=== PATIENT | male | born 2000 | race Two or more races ===

== ENCOUNTER 2022-07-08 22:24 | Inpatient (IN) | payer OTHER ==
[~2022-07-08] VITALS: Ht 175.3 cm; Wt 82.0 kg
[2022-07-08] MEDS ORDERED: SODIUM CHLORIDE 0.9% 1,000 ML IV ONE (23:15)
[2022-07-08] MEDS ORDERED: LORazepam 2MG/ML-1ML VIAL IV ONE (23:15)
[2022-07-08] MEDS ORDERED: levETIRAcetam 500 MG/5ML INJ IV ONE (23:34)
[2022-07-09 00:11] LABS: Alanine Aminotransferase 54 U/L (16-61); Albumin 3.5 g/dL (3.4-5.0); Anion Gap 6 (5-15); Aspartate Aminotransferase 36 U/L (15-37); BUN/Creatinine Ratio 7.9; Blood Alcohol < 3.0 mg/dL (0-5); Blood Urea Nitrogen 8 mg/dL (7-18); Carbon Dioxide 26 mmol/L (21-32); Chloride 114 mmol/L (98-107); GFR African American 121 mL/min; GFR Non-African American 100 mL/min; Glucose 95 mg/dL (74-106); Potassium 3.3 mmol/L (3.5-5.1); Sodium 146 mmol/L (136-145)
[2022-07-09 00:14] LABS: Alkaline Phosphatase 79 U/L (45-117); Bilirubin, Total 0.4 mg/dL (0.2-1.0); Total Protein 6.4 g/dL (6.4-8.2)
[2022-07-09 00:28] LABS: Basophils # (auto) 0 10 ^3/uL (0-0.2); Red Blood Cells 5.01 10^6/uL (4.5-5.90)
[2022-07-09 00:30] LABS: Basophils % (auto) 0.4 % (0.0-2.0); Eosinophils # (auto) 0.3 10 ^3/uL (0-0.8); Eosinophils % (auto) 2.7 % (0.0-7.0); Hematocrit 40.2 % (41.0-53.0); Lymphocytes # (auto) 2.5 10 ^3/uL (0.4-5.4); Mean Corpuscular Hgb Conc. 32.4 g/dL (32.0-36.0); Mean Corpuscular Volume 80.3 fL (80.0-100.0); Monocytes # (auto) 0.9 10 ^3/uL (0-1.3); Monocytes % (auto) 9.1 % (0.0-12.0); Neutrophils # (auto) 5.9 10 ^3/uL (1.6-8.6); Neutrophils % (auto) 61.8 % (37.0-80.0); Red Cell Distribution Width 13.4 % (11.8-14.3); White Blood Cell 9.6 10^3/uL (4.4-10.8)
[2022-07-09] MEDS ORDERED: PIPERACILLIN-TAZOB 3.375GM 100 ML IV ONE (02:30)
[2022-07-09] MEDS ORDERED: methylPREDNISolone SOD SUCC 125 MG/2 ML VL IV ONE (02:30)
[2022-07-09] MEDS ORDERED: ONDANSETRON HCL 4 MG/2 ML VIAL IV PRN ×2 (03:00→12:45)
[2022-07-09] MEDS ORDERED: PHENYTOIN IV DILANTIN 1,000 MG in SODIUM CHL 0.9% 250 ML IV ONE (03:30)
[2022-07-09] MEDS ORDERED: D5W/SOD CHL 0.45% 1,000 ML IV ONE (04:00)
[2022-07-09] MEDS ORDERED: PHENYTOIN SODIUM 50 MG/ML 5ML INJ VIAL IV ONE (04:27)
[2022-07-09] MEDS ORDERED: PHENYTOIN SODIUM 50 MG/ML 2ML VIAL IV ONE (04:28)
[2022-07-09 04:39] LABS: Basophils # (auto) 0 10 ^3/uL (0-0.2); Basophils % (auto) 0.2 % (0.0-2.0); Eosinophils # (auto) 0.2 10 ^3/uL (0-0.8); Hemoglobin 11.9 g/dL (13.5-17.5); Lymphocytes # (auto) 1.6 10 ^3/uL (0.4-5.4); Mean Corpuscular Hemoglobin 26.2 pg (28.0-32.0); Monocytes # (auto) 0.4 10 ^3/uL (0-1.3); Nucleated Red Blood Cells % 0.1 %
[2022-07-09 04:40] LABS: Eosinophils % (auto) 2.9 % (0.0-7.0); Hematocrit 36.4 % (41.0-53.0); Lymphocytes % (auto) 25.2 % (10.0-50.0); Mean Corpuscular Hgb Conc. 32.7 g/dL (32.0-36.0); Mean Corpuscular Volume 80.3 fL (80.0-100.0); Monocytes % (auto) 6.8 % (0.0-12.0); Neutrophils % (auto) 64.9 % (37.0-80.0); Red Blood Cells 4.53 10^6/uL (4.5-5.90); Red Cell Distribution Width 13.4 % (11.8-14.3); White Blood Cell 6.2 10^3/uL (4.4-10.8)
[2022-07-09 04:56] LABS: Albumin 2.6 g/dL (3.4-5.0); Calcium 6.8 mg/dL (8.5-10.1); Potassium 3.2 mmol/L (3.5-5.1)
[2022-07-09 05:00] LABS: BUN/Creatinine Ratio 8.6; Bilirubin, Total 0.8 mg/dL (0.2-1.0); Total Protein 4.8 g/dL (6.4-8.2)
[2022-07-09] MEDS ORDERED: LORazepam 2MG/ML-1ML VIAL ONE ×2 (09:02→12:02)
[2022-07-09] MEDS ORDERED: ENOXAPARIN SOD 100 MG/1 ML SYRINGE SC SCH (10:00)
[2022-07-09] MEDS ORDERED: PANTOPRAZOLE 40 MG/10 ML VIAL INJ IV SCH (10:00)
[2022-07-09] MEDS: ENOXAPARIN SOD 40 MG/0.4 ML SYRINGE SC SCH (10:14)
[2022-07-09] MEDS ORDERED: LORazepam 2MG/ML-1ML VIAL IM ONE (11:30)
[2022-07-09] MEDS ORDERED: LORazepam 2MG/ML-1ML VIAL IV ONE (12:15)
[2022-07-09] MEDS ORDERED: POTASSIUM CHL 20 Meq TABLET PO ONE (12:15)
[2022-07-09] MEDS ORDERED: LORazepam 2MG/ML-1ML VIAL IV PRN (12:15)
[2022-07-09] MEDS: levETIRAcetam 500 MG TAB PO SCH ×2 (14:07→23:56)
[2022-07-09 22:18] VITALS: BP 128/78
[2022-07-10 00:14] VITALS: BP 113/72
[2022-07-10 04:33] VITALS: BP 117/65
[2022-07-10] MEDS: levETIRAcetam 500 MG TAB PO SCH ×3 (05:41→22:00)
[2022-07-10 05:52] LABS: Albumin 3.2 g/dL (3.4-5.0); Calcium 8.8 mg/dL (8.5-10.1)
[2022-07-10 05:56] LABS: BUN/Creatinine Ratio 9.7; Bilirubin, Total 0.5 mg/dL (0.2-1.0); Total Protein 6.3 g/dL (6.4-8.2)
[2022-07-10] MEDS: LORazepam 2MG/ML-1ML VIAL IV PRN ×3 (08:05→23:13)
[2022-07-10 09:00] VITALS: BP 105/59
[2022-07-10] MEDS: ENOXAPARIN SOD 40 MG/0.4 ML SYRINGE SC SCH (09:42)
[2022-07-10] MEDS: PANTOPRAZOLE 40 MG TAB PO SCH (09:42)
[2022-07-10] MEDS: PHENYTOIN IV DILANTIN 300 MG in SODIUM CHL 0.9% 50 ML IV SCH (09:42)
[2022-07-10 10:35] LABS: Urine Bacteria NONE SEEN /hpf (None Seen); Urine Blood Negative /uL (Negative); Urine Specific Gravity 1.018 (1.001-1.035); Urine WBC 1 /hpf (0 - 3)
[2022-07-10 11:01] LABS: Barbiturate Scree,Urine NEGATIVE (NEGATIVE)
[2022-07-10 11:14] LABS: Amphetamine Screen, Urine NEGATIVE (NEGATIVE); Benzodiazephine Screen, Urine NEGATIVE (NEGATIVE); Cannabinoid Screen, Urine NEGATIVE (NEGATIVE); Cocaine Screen, Urine NEGATIVE (NEGATIVE); Opiate Scree,Urine NEGATIVE (NEGATIVE); Phencyclidine Screen, Urine NEGATIVE (NEGATIVE)
[2022-07-10 13:33] VITALS: BP 111/43
[2022-07-10 16:43] VITALS: BP 95/61
[2022-07-10] MEDS: D5W/SOD CHL 0.45% 1,000 ML IV SCH (20:28)
[2022-07-10 22:07] VITALS: BP 105/75
[2022-07-11] MEDS ORDERED: levETIRAcetam 500 MG/5ML INJ IV ONE (01:04)
[2022-07-11] MEDS: D5W/SOD CHL 0.45% 1,000 ML IV SCH ×3 (03:00→22:32)
[2022-07-11] MEDS: LORazepam 2MG/ML-1ML VIAL IV PRN ×2 (03:09→09:13)
[2022-07-11 04:31] VITALS: BP 111/56
[2022-07-11 07:06] LABS: Potassium 3.5 mmol/L (3.5-5.1)
[2022-07-11 07:10] LABS: BUN/Creatinine Ratio 6.7
[2022-07-11 08:05] VITALS: BP 111/69
[2022-07-11 09:16] VITALS: BP 111/69
[2022-07-11] MEDS: PANTOPRAZOLE 40 MG TAB PO SCH (09:18)
[2022-07-11] MEDS: ENOXAPARIN SOD 40 MG/0.4 ML SYRINGE SC SCH (09:18)
[2022-07-11] MEDS: PHENYTOIN IV DILANTIN 300 MG in SODIUM CHL 0.9% 50 ML IV SCH (10:32)
[2022-07-11 12:47] VITALS: BP 103/55
[2022-07-11 16:56] VITALS: BP 102/62
[2022-07-11] MEDS ORDERED: ACETAMINOPHEN 325 MG TAB PO PRN (17:15)
[2022-07-11] MEDS ORDERED: traMADol HCL 50 MG TAB PO PRN (17:15)
[2022-07-11] MEDS ORDERED: HYDROcodone-ACET 5/325MG TAB PO PRN (21:00)
[2022-07-11 22:01] VITALS: BP 111/69
[2022-07-12] VITALS (7 sets, daily range): BP systolic 100–128; BP diastolic 51–62
[2022-07-12] MEDS: D5W/SOD CHL 0.45% 1,000 ML IV SCH (03:45)
[2022-07-12] MEDS: PANTOPRAZOLE 40 MG TAB PO SCH (10:35)
[2022-07-12] MEDS: ENOXAPARIN SOD 40 MG/0.4 ML SYRINGE SC SCH (10:35)
[2022-07-12] MEDS: PHENYTOIN IV DILANTIN 300 MG in SODIUM CHL 0.9% 50 ML IV SCH (10:38)
[2022-07-12] MEDS: ALBUTEROL SULF 2.5 MG/0.5ML(0.5%) NEB SOLN NEB SCH (22:18)
[2022-07-13 05:00] VITALS: BP 96/50
[2022-07-13 06:28] LABS: Calcium 8.6 mg/dL (8.5-10.1); Potassium 3.5 mmol/L (3.5-5.1)
[2022-07-13 06:31] LABS: BUN/Creatinine Ratio 15.7
[2022-07-13 09:00] VITALS: BP 101/47
[2022-07-13] MEDS: ALBUTEROL SULF 2.5 MG/0.5ML(0.5%) NEB SOLN NEB SCH (09:26)
[2022-07-13] MEDS ORDERED: FUROSEMIDE 20 MG/2 ML VIAL IV SCH (10:00)
[2022-07-13] MEDS ORDERED: POTASSIUM CHL 10 Meq TABLET PO SCH (10:00)
[2022-07-13] MEDS: ENOXAPARIN SOD 40 MG/0.4 ML SYRINGE SC SCH (10:13)
[2022-07-13] MEDS: PANTOPRAZOLE 40 MG TAB PO SCH (10:18)
[2022-07-13] MEDS: PHENYTOIN IV DILANTIN 300 MG in SODIUM CHL 0.9% 50 ML IV SCH (10:41)
[2022-07-13 13:00] VITALS: BP 113/64
[2022-07-13] MEDS ORDERED: KEP500T PO (13:11)
[2022-07-13 16:50] VITALS: BP 124/67
[2022-07-13 17:50] VITALS: BP 100/47
== END 2022-07-13 18:40 | DRG 101 ==
LOC: ER 22:32 → EDSEX 22:32 → EEVIPCON 22:32 → OVERFLOW 07-09 02:58 → CENTRAL 07-09 21:08 → TELE-CENTR 07-11 00:36
PROVIDERS: ADMIT Internal Medicine; ATTEND Internal Medicine
DX: G40.401 Other generalized epilepsy and epileptic syndromes, not intractable, with status epilepticus (principal); Z20.822 Contact with and (suspected) exposure to COVID-19; E86.0 Dehydration; E87.6 Hypokalemia; I50.9 Heart failure, unspecified; F17.200 Nicotine dependence, unspecified, uncomplicated; F43.10 Post-traumatic stress disorder, unspecified; R09.02 Hypoxemia; Z82.0 Family history of epilepsy and other diseases of the nervous system; Z91.199 Patient's noncompliance with other medical treatment and regimen due to unspecified reason; Z79.899 Other long term (current) drug therapy
CPT/HCPCS: 36415; 70450; 71045; 80048; 80053; 80185; 80307; 80320; 81001; 82040; 82542; 85025; 87081; 87426; 93005; 94640; 95819; 96365; 96367; 96375; 99291; C9113; G0378; J2543; J7060

== ENCOUNTER 2022-07-25 22:10 | Inpatient (IN) | payer OTHER ==
[~2022-07-25] VITALS: Ht 172.7 cm; Wt 79.7 kg
[~2022-07-25 22:10] MED LIST: KEP500T PO
[2022-07-25 23:15] LABS: Basophils # (auto) 0.1 10 ^3/uL (0-0.2); Hemoglobin 15.5 g/dL (13.5-17.5); Lymphocytes # (auto) 2.8 10 ^3/uL (0.4-5.4); Neutrophils # (auto) 8.2 10 ^3/uL (1.6-8.6); Nucleated Red Blood Cells % 0.1 %
[2022-07-25 23:18] LABS: Basophils % (auto) 0.4 % (0.0-2.0); Eosinophils # (auto) 0.2 10 ^3/uL (0-0.8); Eosinophils % (auto) 1.3 % (0.0-7.0); Hematocrit 48.5 % (41.0-53.0); Lymphocytes % (auto) 23.1 % (10.0-50.0); Mean Corpuscular Hemoglobin 25.9 pg (28.0-32.0); Mean Corpuscular Volume 81.1 fL (80.0-100.0); Monocytes # (auto) 0.8 10 ^3/uL (0-1.3); Monocytes % (auto) 6.7 % (0.0-12.0); Neutrophils % (auto) 68.5 % (37.0-80.0); Red Blood Cells 5.98 10^6/uL (4.5-5.90); Red Cell Distribution Width 13.4 % (11.8-14.3)
[2022-07-25] MEDS ORDERED: LORazepam 2MG/ML-1ML VIAL IV ONE (23:30)
[2022-07-25 23:37] LABS: Albumin 4.1 g/dL (3.4-5.0); BUN/Creatinine Ratio 10.8; Calcium 9.8 mg/dL (8.5-10.1); Potassium 3.8 mmol/L (3.5-5.1)
[2022-07-25 23:40] LABS: Bilirubin, Total 0.2 mg/dL (0.2-1.0); Total Protein 7.8 g/dL (6.4-8.2)
[2022-07-26] MEDS ORDERED: LORazepam 2MG/ML-1ML VIAL IV ONE ×2 (00:45→06:30)
[2022-07-26 07:59] LABS: Urine Bacteria NONE SEEN /hpf (None Seen); Urine Blood TRACE /uL (Negative); Urine Mucus FEW (None Seen); Urine Specific Gravity 1.031 (1.001-1.035); Urine WBC 6 /hpf (0 - 3)
[2022-07-26] MEDS: D5W/SOD CHL 0.45% 1,000 ML IV SCH ×3 (08:15→23:30)
[2022-07-26] MEDS ORDERED: LORazepam 2MG/ML-1ML VIAL ONE (08:23)
[2022-07-26 08:33] LABS: Amphetamine Screen, Urine NEGATIVE (NEGATIVE); Barbiturate Scree,Urine NEGATIVE (NEGATIVE); Benzodiazephine Screen, Urine POSITIVE (NEGATIVE); Cannabinoid Screen, Urine NEGATIVE (NEGATIVE); Cocaine Screen, Urine NEGATIVE (NEGATIVE); Opiate Scree,Urine NEGATIVE (NEGATIVE); Phencyclidine Screen, Urine NEGATIVE (NEGATIVE)
[2022-07-26] MEDS: LORazepam 2MG/ML-1ML VIAL IV PRN ×6 (09:12→23:35)
[2022-07-26] MEDS: ENOXAPARIN SOD 40 MG/0.4 ML SYRINGE SC SCH (10:00)
[2022-07-26 12:41] LABS: INR 1.17 (0.9-1.15); Partial Thromboplastin Time 32.6 sec (24.6-33.4)
[2022-07-26] MEDS ORDERED: levETIRAcetam 500 MG TAB PO SCH (14:00)
[2022-07-26 17:23] VITALS: BP 109/63
[2022-07-26 20:00] VITALS: BP 104/64
[2022-07-26] MEDS: levETIRAcetam 500 MG TAB PO SCH (21:20)
[2022-07-26 22:00] VITALS: BP 104/64
[2022-07-27 05:00] VITALS: BP 92/49
[2022-07-27] MEDS: D5W/SOD CHL 0.45% 1,000 ML IV SCH ×3 (07:36→18:00)
[2022-07-27 09:00] VITALS: BP 109/56
[2022-07-27] MEDS: LORazepam 2MG/ML-1ML VIAL IV PRN ×3 (09:54→21:09)
[2022-07-27] MEDS: ENOXAPARIN SOD 40 MG/0.4 ML SYRINGE SC SCH (10:01)
[2022-07-27] MEDS: levETIRAcetam 500 MG TAB PO SCH (10:26)
[2022-07-27] MEDS: FLUoxetine HCL 20 MG CAP PO SCH (11:47)
[2022-07-27 13:00] VITALS: BP_SYST 100; BP_SYST 141; BP_DIAS 51; BP_DIAS 70
[2022-07-27 17:00] VITALS: BP 114/52
[2022-07-27 22:00] VITALS: BP 114/50
[2022-07-28] MEDS: QUEtiapine FUMARATE 25 MG TAB PO SCH ×2 (00:09→22:44)
[2022-07-28] MEDS: MIRTAZAPINE 30 MG TAB PO SCH ×2 (00:09→22:45)
[2022-07-28] MEDS: levETIRAcetam 500 MG TAB PO SCH ×3 (00:10→22:44)
[2022-07-28] MEDS: D5W/SOD CHL 0.45% 1,000 ML IV SCH ×4 (00:16→22:46)
[2022-07-28 05:00] VITALS: BP 91/45
[2022-07-28 08:30] VITALS: BP 92/48
[2022-07-28] MEDS: ENOXAPARIN SOD 40 MG/0.4 ML SYRINGE SC SCH (09:49)
[2022-07-28] MEDS: FLUoxetine HCL 20 MG CAP PO SCH (09:49)
[2022-07-28 13:30] VITALS: BP 97/57
[2022-07-28] MEDS: PHENYTOIN SODIUM 100 MG CAP PO SCH ×2 (14:00→22:45)
[2022-07-28 15:31] LABS: Albumin 3.5 g/dL (3.4-5.0); BUN/Creatinine Ratio 5.6; Potassium 4.3 mmol/L (3.5-5.1)
[2022-07-28 15:34] LABS: Bilirubin, Total 0.5 mg/dL (0.2-1.0); Total Protein 6.9 g/dL (6.4-8.2)
[2022-07-28] MEDS ORDERED: IOHEXOL 350 MG/ML 100ML IJ ONE (16:17)
[2022-07-28 16:30] VITALS: BP 106/57
[2022-07-28 22:00] VITALS: BP 98/40
[2022-07-29] MEDS: D5W/SOD CHL 0.45% 1,000 ML IV SCH ×4 (04:33→23:25)
[2022-07-29 05:23] VITALS: BP 92/43
[2022-07-29] MEDS: PHENYTOIN SODIUM 100 MG CAP PO SCH ×3 (06:36→23:25)
[2022-07-29 09:00] VITALS: BP 95/50
[2022-07-29] MEDS: ENOXAPARIN SOD 40 MG/0.4 ML SYRINGE SC SCH (09:33)
[2022-07-29] MEDS: levETIRAcetam 500 MG TAB PO SCH ×2 (09:33→23:24)
[2022-07-29] MEDS: FLUoxetine HCL 20 MG CAP PO SCH (09:33)
[2022-07-29 13:00] VITALS: BP 112/66
[2022-07-29 16:51] VITALS: BP 105/67
[2022-07-29] MEDS: MIRTAZAPINE 30 MG TAB PO SCH (23:24)
[2022-07-29] MEDS: QUEtiapine FUMARATE 25 MG TAB PO SCH (23:24)
[2022-07-29 23:30] VITALS: BP 113/58
[2022-07-30] MEDS: PHENYTOIN SODIUM 100 MG CAP PO SCH ×3 (05:30→22:06)
[2022-07-30] MEDS: D5W/SOD CHL 0.45% 1,000 ML IV SCH ×3 (05:35→19:47)
[2022-07-30 08:37] VITALS: BP 92/41
[2022-07-30] MEDS: levETIRAcetam 500 MG TAB PO SCH ×2 (09:56→22:08)
[2022-07-30] MEDS: FLUoxetine HCL 20 MG CAP PO SCH (09:56)
[2022-07-30] MEDS: ENOXAPARIN SOD 40 MG/0.4 ML SYRINGE SC SCH (09:57)
[2022-07-30 12:50] VITALS: BP 104/56
[2022-07-30 15:28] LABS: Hepatitis A Ab IgM Negative; Hepatitis B Core IgM Negative
[2022-07-30 15:29] LABS: Hepatitis C Antibody Negative (Negative)
[2022-07-30 16:29] VITALS: BP 123/58
[2022-07-30 22:00] VITALS: BP 130/68
[2022-07-30] MEDS: QUEtiapine FUMARATE 25 MG TAB PO SCH (22:09)
[2022-07-30] MEDS: MIRTAZAPINE 30 MG TAB PO SCH (22:09)
[2022-07-31] MEDS: D5W/SOD CHL 0.45% 1,000 ML IV SCH ×3 (01:35→14:26)
[2022-07-31 05:00] VITALS: BP 105/46
[2022-07-31] MEDS: PHENYTOIN SODIUM 100 MG CAP PO SCH ×2 (06:21→14:25)
[2022-07-31 08:38] VITALS: BP 110/58
[2022-07-31] MEDS: levETIRAcetam 500 MG TAB PO SCH (10:05)
[2022-07-31] MEDS: ENOXAPARIN SOD 40 MG/0.4 ML SYRINGE SC SCH (10:05)
[2022-07-31] MEDS: FLUoxetine HCL 20 MG CAP PO SCH (10:05)
[2022-07-31 12:50] VITALS: BP 102/41
[2022-07-31] MEDS ORDERED: PHE100C PO (13:23)
[2022-07-31] MEDS ORDERED: QUET1TAB11 PO (13:23)
[2022-07-31] MEDS ORDERED: FLUO20CA90 PO (13:23)
[2022-07-31] MEDS ORDERED: MIR30T PO (13:23)
[2022-07-31 16:29] VITALS: BP 105/42
[2022-07-31 16:32] VITALS: BP 105/42
== END 2022-07-31 17:00 | DRG 101 ==
LOC: ER 22:10 → EEVIPCON 22:10 → EDBD 22:10 → EDUNIT# 22:10 → OVERFLOW 07-26 08:25 → WEST WING 07-26 14:20
PROVIDERS: ADMIT Internal Medicine; ATTEND Internal Medicine
DX: G40.801 Other epilepsy, not intractable, with status epilepticus (principal); F33.2 Major depressive disorder, recurrent severe without psychotic features; F14.10 Cocaine abuse, uncomplicated; F17.200 Nicotine dependence, unspecified, uncomplicated; F43.10 Post-traumatic stress disorder, unspecified; K75.9 Inflammatory liver disease, unspecified; Z20.822 Contact with and (suspected) exposure to COVID-19; R09.02 Hypoxemia; F19.10 Other psychoactive substance abuse, uncomplicated; F41.9 Anxiety disorder, unspecified; F12.90 Cannabis use, unspecified, uncomplicated; Z63.4 Disappearance and death of family member; Z82.0 Family history of epilepsy and other diseases of the nervous system; Z79.899 Other long term (current) drug therapy; Z76.5 Malingerer [conscious simulation]
CPT/HCPCS: 36415; 70450; 71045; 71275; 80053; 80074; 80185; 80307; 81001; 82962; 83880; 84484; 85025; 85610; 85730; 87081; 87426; 93005; 95819; 96361; 96374; 96376; G0378; J7042